=== PATIENT | female | born 1990 | race Caucasian/White ===

== ENCOUNTER 2016-05-16 02:29 | Inpatient (IN) | payer MEDICAID ==
[~2016-05-16] VITALS: Ht 167.6 cm; Wt 77.1 kg
[2016-05-19] MEDS ORDERED: FEOSOL-DPS325 MG PO (13:59)
[2016-05-19] MEDS ORDERED: COLACE-DPS100 MG PO (13:59)
[2016-05-19] MEDS ORDERED: PRENATAL VIT1 TAB PO (13:59)
[2016-05-19] MEDS ORDERED: MOTRIN-DPS800 MG PO (14:00)
[2016-05-19] MEDS ORDERED: PERCOCET 5 DPS1 TAB PO (14:00)
[2016-05-19] MEDS ORDERED: NIPPLECREAM TP (14:01)
--- NOTE | 2016-05-20 20:00 | ER ---
ADMIT: 05/16/2016 RM/LOC: 223 [facility] MR#: [id number] [address] [facility] [address] [place], [place] [address] JARED DE LA CRUZ [address] [place] [address] Emergency Room Report SEX: F AGE: 26 : 1990 DATE: 05/16/2016 CHIEF COMPLAINT: Vaginal bleeding. HISTORY OF PRESENT ILLNESS: The patient is a 26-year-old 36-week 2, para 1-0-0-1, complains of acute onset pelvic pain with gush of fluid and vaginal bleeding 25 minutes prior to arrival, called 911. Found to be pale, hypotensive by paramedics. Large emesis en route. Treated with 2 large-bore IVs. Zofran 8 mg IV push. The patient arrived with pressure of 100 systolic, pulse of 100, pale. Dr. Kent was consulted and agreed for emergent C- section. The patient transferred immediately to area. PAST MEDICAL HISTORY: OPERATIONS: . ILLNESSES: None. ALLERGIES: NONE. MEDICATIONS: vitamins. SOCIAL HISTORY: , nonsmoker, nondrinker. No illicit drugs. FAMILY HISTORY: Negative per chart review. REVIEW OF SYSTEMS: A 12-point review of systems negative for all other systems, illnesses, or operations except as outlined above. PHYSICAL EXAMINATION: VITAL SIGNS: Temp 98, pulse 110, respirations 22, BP 100/70, and SaO2 of 96% on room air. GENERAL: Pale, nondiaphoretic without jaundice or icterus. HEENT: Normocephalic. No evidence of epistaxis, rhinorrhea, or otorrhea. NECK: Supple without lymphadenopathy or thyromegaly. CHEST: Breath sounds equal without rales, rhonchi, or wheeze. HEART: Tachycardic, regular without murmur, gallop, or edema. ADMIT: 05/16/2016 RM/LOC: 223 [facility] MR#: [id number] 26[address] [facility] [address] [place], [place] [address] JARED DE LA CRUZ [address] [place] [address] Emergency Room Report SEX: F AGE: 26 : 1990 ABDOMEN: Gravid uterus with contractions noted. PELVIC: Deferred, but considerable amount of blood noted on the perineum. NEURO: EOMI. PERRLA. No evidence of drift, dysarthria, or ataxia. MEDICAL DECISION MAKING: Presentation consistent with abruption with jeopardy. Discussed case with Dr. Kent, who agrees for emergent . DIAGNOSIS: Third trimester bleeding consistent with abruption. RECOMMENDATION: Emergent transfer to area. ADMISSION/DISCHARGE CONDITION: Critical. Martin Og MD/ carolinal JOB #: [id number] CC: Terell Kent MD, Attending Physician Terell Kent MD, Family Physician
--- NOTE | 2016-06-19 12:27 | OR ---
ADMIT: 05/16/2016 RM/LOC: 223 [facility] MR#: [id number] [address] [facility] [address] [place], [place] [address] JARED DE LA CRUZ Maxi [address] [place] [address] Operative/Delivery Room Report SEX: F AGE: 26 : 1990 SURGERY DATE: 05/16/2016 SURGEON: Terell Kent MD PRINCIPAL DIAGNOSES: 1. Intrauterine at approximately 37 weeks' estimated gestational age. 2. History of previous section. 3. Placental abruption. POSTOPERATIVE DIAGNOSES: 1. Intrauterine at approximately 37 weeks' estimated gestational age. 2. History of previous section. 3. Placental abruption. PROCEDURE: Repeat low transverse section. GEOPHYSICS SCIENTIST: Ai Nelson MD Resident. INDICATION: The patient is a 26-year-old female, who had presented through the Emergency Department with complaints of large fluid with vaginal bleeding. On evaluation in the emergency department, she was noted to be tachycardic and hypotensive. The patient was immediately taken up to the [facility]thing Center where she was noted to have heavy vaginal bleeding. Diagnosis of placental abruption was made and decision was made to proceed with emergent repeat low transverse section. heart tones were in the 120s- 130s at that time. ANESTHESIA: General endotracheal. ESTIMATED BLOOD LOSS: 500 mL. COMPLICATIONS: None. FINDINGS: Viable male infant, 7 pounds 3-1/2 ounces with scores of 4 at 1, 6 at 5, and 9 at 10 minutes. Anterior placenta was noted with fresh clot covering approximately 10% of the placental surface. DESCRIPTION OF PROCEDURE: The patient was taken to the operating room, where she was prepped and draped in the usual fashion in dorsal lithotomy position in an emergent fashion. After a general endotracheal anesthesia was administered, skin incision was made with a scalpel and carried through sharply to the underlying layer of fascia. Fascia was nicked in the midline and the fascial incision was extended laterally with Maher scissors. The fascia was dissected off the underlying rectus muscles. The rectus muscles were in the midline. The parietal peritoneum was identified and entered with a combination of sharp and blunt dissection. This incision was then extended superiorly and inferiorly with good visualization of the ADMIT: 05/16/2016 RM/LOC: 223 [facility] MR#: [id number] [address] [address] JARED DE LA CRUZ [address] [place], [place] [address] Operative/Delivery Room Report SEX: F AGE: 26 : 1990 bladder. The uterus was then nicked in the midline. The uterine incision was extended laterally with blunt digital dissection. Approximately 50 mL of fresh clot was noted in the amniotic fluid immediately underlying the myotomy. Infant's head was then delivered atraumatically. Remainder of the was then delivered. Cord was clamped x2, cut, and the was handed off to the waiting pst supervisor. Cord blood and cord gases were obtained. Placenta was then delivered with findings noted above. The uterus was then exteriorized and cleared of all clots and debris. The endometrial cavity was then swept with a moist laparotomy sponge to remove any remaining products of conception. Of note, the patient was noted to have a septate uterus with the septum coming down approximately 50% the length of the uterine fundus. The uterine incision was then reapproximated with a running locked length of 0 Vicryl and good hemostasis was noted. The patient's abdomen was then suctioned. The uterus was returned to the patient's abdomen. The paracolic gutters were then cleared of all clots and debris. The uterus was then returned to the patient's abdomen. The paracolic gutters were cleared of all clots and debris. Uterine incision was again inspected and noted to be hemostatic. Subfascial compartments were then inspected and noted to be hemostatic and the fascia was then reapproximated with a running length of 0 Vicryl. Subcutaneous tissue was then inspected and noted to be hemostatic and was reapproximated with several interrupted sutures of plain gut, and the skin was closed with Insorb subcuticular giorgio. The patient tolerated the procedure well and was taken to the recovery room in stable condition. An abdominal flat plate was performed at the conclusion of the procedure and no sponges, needles, or instruments were noted to have been left behind. The patient tolerated the procedure well. Terell Kent MD/ nicolas JOB #: [id number] CC: Terell Kent, Attending Physician Terell Kent, Family Physician
--- NOTE | 2016-07-19 09:58 | HP ---
ADMIT: 05/16/2016 RM/LOC: 223 [facility] MR#: [id number] 26[address] [facility] [address] [place], [place] [address] DOROTHYJARED Maxi [address] [place] [address] Pre-OP History and Physical SEX: F AGE: 26 : 1990 DATE OF SERVICE: PRINCIPAL DIAGNOSES: 1. Term intrauterine . 2. History of previous section. 3. Placental abruption. HISTORY OF PRESENT ILLNESS: The patient is a 26-year-old female, 3, para 1-0-1-1 who presented at approximately 37 weeks' estimated gestational age with complaint of vaginal bleeding. On evaluation in the emergency department, she was noted to have heavy vaginal bleeding mostly tachycardic and hypotensive. PREVIOUS MEDICAL HISTORY: She denied any significant previous medical history. SOCIAL HISTORY: She does not smoke, drink, or use drugs. FAMILY HISTORY: Diabetes in grandparents. PHYSICAL EXAMINATION: GENERAL: The patient is a well-developed, well- nourished female, alert and oriented in no apparent distress with normal stream of thought and content of speech. HEART: Regular rate and rhythm without murmurs, rubs, or gallops. LUNGS: Clear to auscultation bilaterally. ABDOMEN: Soft, gravid. : The patient is noted to have active vaginal bleeding. ASSESSMENT: Term intrauterine with history of previous section given the patient being tachycardic, hypertensive, and having active vaginal bleeding. We will proceed with repeat low transverse section given a probable diagnosis of placental abruption. We discussed risks and benefits of surgery and the patient voices understanding and desires to proceed. Terell Kent MD/ nicolas JOB #: [id number] CC: Terell Kent MD, Attending Physician Terell Kent MD, Family Physician
--- NOTE | 2016-07-24 07:43 | DS ---
ADMIT: 05/16/2016 RM/LOC: [address] [facility] MR#: [id number] 26[address] [facility] [address] [place], [place] [address] JARED DE LA CRUZ [address] [place] [address] General Discharge Summary SEX: F AGE: 26 : 1990 ADMISSION DATE: 05/16/2016 DISCHARGE DATE: 05/18/2016 PRINCIPAL DIAGNOSES: 1. Intrauterine at 37 weeks' estimated gestational age. 2. History of previous section. 3. Vaginal bleeding suspicious for placental abruption. REASON FOR HOSPITALIZATION: The patient is a 26-year-old female, 3, para 1-0-1-1, who presented through the Emergency Department with loss of fluid and vaginal bleeding. OPERATIVE PROCEDURES: The patient underwent an emergent repeat low transverse section on 05/16/2016. HOSPITAL COURSE: The patient was admitted, underwent an emergent repeat low transverse section. She did well through the initial operative day. By the morning of postoperative day #1, she was doing well, tolerating a regular diet, experiencing good pain control with oral pain medications, ambulating without difficulty and using the bathroom without any problems. Postoperative hemoglobin was 6.0. We discussed possible blood transfusion. The patient declined. We began her on iron sulfate 325 mg 1 tab p.o. t.i.d. We continued to monitor the patient through the course of postoperative day #1. By the morning of postoperative day #2, she was tolerating regular diet and experiencing good pain control with oral pain medications, ambulating without difficulty, and using the bathroom without any problems. Repeat hemoglobin was stable at 6.0. The patient was dismissed to home on postoperative day #2 on the following medications; Motrin 800 mg 1 tab p.o. q.8 hours p.r.n. and Percocet 5, 1 to 2 tabs p.o. q.4 to 6 hours p.r.n. She was instructed to follow up in the clinic again in 2 weeks' time for an incision check and again in 6 weeks' time, sooner as needed for any problems. Terell Kent MD/ nicolas JOB #: [id number] CC: Terell Kent MD, Attending Physician Terell Kent MD, Family Physician
== END 2016-05-18 11:21 | disposition home or self-care (01) | DRG 765 ==
LOC: ER 02:29 → 2LDRP 02:46
PROVIDERS: ADMIT Obstetrics & Gynecology
PROC: 10D00Z1 Extraction of Products of Conception, Low, Open Approach (ICD-10-PCS; principal; 2016-05-16)
DX: O45.93 Premature separation of placenta, unspecified, third trimester (principal); D62 Acute posthemorrhagic anemia; O90.81 Anemia of the puerperium; O34.211 Maternal care for low transverse scar from previous cesarean delivery; O34.03 Maternal care for unspecified congenital malformation of uterus, third trimester; Q51.2 Other doubling of uterus; Z3A.37 37 weeks gestation of pregnancy; Z37.0 Single live birth